=== PATIENT | male | born 1950 | race Caucasian/White ===

== ENCOUNTER 2022-03-11 07:37 | Inpatient (IN) | payer MEDICARE ==
[~2022-03-11] VITALS: Ht 193 cm; Wt 93.5 kg
[2022-03-11] MEDS ORDERED: ACETAMINOPHEN ES 500 MG TABLET PO ONE (08:00)
[2022-03-11] MEDS ORDERED: ONDANSETRON 4 MG/2 ML VIAL IV ONE (08:00)
[2022-03-11] MEDS ORDERED: MORPHINE SULFATE 2 MG/1 ML DISP.SYRIN IV ONE (08:00)
[2022-03-11] MEDS ORDERED: IOHEXOL 350 100 ML INFUS..BTL ONE (08:02)
[2022-03-11] MEDS ORDERED: SWABABLE VALVE TRANSFER SET EA MC ONE (08:02)
[2022-03-11] MEDS ORDERED: IV NORMAL SALINE 250 ML IV ONE (08:02)
[2022-03-11] MEDS ORDERED: BISMUTH PO (08:09)
[2022-03-11] MEDS ORDERED: ANTACID PO (08:09)
[2022-03-11] MEDS ORDERED: ACET-73 PO (08:09)
[2022-03-11] MEDS ORDERED: MEXI150C17 PO (08:09)
[2022-03-11] MEDS ORDERED: SODI650T PO (08:09)
[2022-03-11] MEDS ORDERED: BUSP5TAB3 PO (08:09)
[2022-03-11] MEDS ORDERED: DULO60CA45 PO (08:09)
[2022-03-11] MEDS ORDERED: ATOR80TA PO (08:09)
[2022-03-11] MEDS ORDERED: TIOT18CA3 INH (08:09)
[2022-03-11] MEDS ORDERED: AMIO200T5 PO (08:09)
[2022-03-11] MEDS ORDERED: TAMS-3 PO (08:09)
[2022-03-11] MEDS ORDERED: BUPR-319 PO (08:09)
[2022-03-11] MEDS ORDERED: LEVO25TA9 PO (08:09)
[2022-03-11] MEDS ORDERED: ASPI81TA31 PO (08:09)
[2022-03-11 08:11] LABS: HEMATOCRIT 38.6 % (36.7-47.1); MEAN CORPUSCULAR HEMOGLOBIN 27.8 uug (23.8-33.4); MEAN CORPUSCULAR VOLUME 82.6 fL (73.0-96.2); PLATELET COUNT (AUTO) 241 K/uL (152-348)
[2022-03-11 08:24] LABS: CREATININE 1.2 mg/dL (0.6-1.3); POTASSIUM 4.6 mmol/L (3.5-5.1)
[2022-03-11] MEDS ORDERED: ONDANSETRON 4 MG/2 ML VIAL ONE ×2 (08:24→19:41)
[2022-03-11] MEDS ORDERED: ACETAMINOPHEN ES 500 MG TABLET ONE (08:24)
[2022-03-11] MEDS ORDERED: MORPHINE SULFATE 4 MG/1 ML DISP.SYRIN ONE ×2 (08:24→11:24)
[2022-03-11 10:14] LABS: CARBON DIOXIDE 22 mmol/L (21-32); CHLORIDE 105 mmol/L (98-107); GLUCOSE 120 mg/dL (74-106); UREA NITROGEN, BLOOD 25 mg/dL (7-18)
[2022-03-11] MEDS ORDERED: ASPIRIN 81 MG TAB.CHEW PO ONE (10:45)
[2022-03-11] MEDS ORDERED: MORPHINE SULFATE 4 MG/1 ML DISP.SYRIN IV ONE (11:15)
[2022-03-11] MEDS ORDERED: ASPIRIN 81 MG TAB.CHEW ONE (11:24)
[2022-03-11] MEDS: DULOXETINE 60 MG CAPSULE.DR PO SCH ×2 (14:00→22:44)
[2022-03-11] MEDS ORDERED: busPIRone 5 MG TABLET ONE (14:51)
[2022-03-11] MEDS: busPIRone 5 MG TABLET PO SCH ×2 (14:56→22:44)
[2022-03-11] MEDS ORDERED: HYDROMORPHONE 1 MG/1 ML DISP.SYRIN ONE (19:41)
[2022-03-11] MEDS ORDERED: HYDROMORPHONE 1 MG/1 ML DISP.SYRIN IV PRN (19:45)
[2022-03-11] MEDS ORDERED: ONDANSETRON 4 MG/2 ML VIAL IV PRN ×2 (19:45→22:30)
[2022-03-11] MEDS ORDERED: NALOXONE HCL 0.4 MG/ML AMPUL ONE (20:12)
[2022-03-11] MEDS ORDERED: NALOXONE HCL 0.4 MG/ML AMPUL IV ONE (20:15)
[2022-03-11 21:30] VITALS: BP 140/108
[2022-03-11] MEDS ORDERED: ENOXAPARIN SODIUM 40 MG/0.4 ML DISP.SYRIN SQ SCH (22:30)
[2022-03-11] MEDS ORDERED: MAGNESIUM HYDROXIDE 30 ML LIQUID UDC PO PRN (22:30)
[2022-03-11] MEDS ORDERED: ACETAMINOPHEN 325 MG TABLET PO PRN (22:30)
[2022-03-11] MEDS ORDERED: REMEDY ESSENTIAL ZINC PASTE 113 GM TP PRN (22:30)
[2022-03-11] MEDS ORDERED: ZOLPIDEM 5 MG TABLET PO PRN (22:30)
[2022-03-11] MEDS: HYDROCODONE/APAP 10-325 MG TABLET PO PRN (22:44)
[2022-03-11] MEDS: ATORVASTATIN 40 MG TABLET PO SCH (22:44)
[2022-03-11] MEDS: MORPHINE SULFATE 2 MG/1 ML DISP.SYRIN IV PRN (23:43)
[2022-03-12] VITALS: BP 165/87
[2022-03-12 04:00] VITALS: BP 133/85
[2022-03-12] MEDS: busPIRone 5 MG TABLET PO SCH ×3 (05:23→21:09)
[2022-03-12] MEDS: HYDROCODONE/APAP 10-325 MG TABLET PO PRN ×3 (05:23→21:53)
[2022-03-12] MEDS: LEVOTHYROXINE SODIUM 25 MCG TABLET PO SCH (06:16)
[2022-03-12 06:47] LABS: HEMATOCRIT 38.5 % (36.7-47.1); MEAN CORPUSCULAR HEMOGLOBIN 27.9 uug (23.8-33.4); MEAN CORPUSCULAR VOLUME 82.4 fL (73.0-96.2); PLATELET COUNT (AUTO) 212 K/uL (152-348)
[2022-03-12 07:11] LABS: BILIRUBIN,TOTAL 0.5 mg/dL (0.2-1.0); MAGNESIUM 1.9 mg/dL (1.8-2.4); PHOSPHOROUS 3.9 mg/dL (2.5-4.9); POTASSIUM 4.5 mmol/L (3.5-5.1); TOTAL PROTEIN, SERUM 7.4 g/dL (6.4-8.2)
[2022-03-12] MEDS ORDERED: ENOXAPARIN SODIUM 100 MG/ML DISP.SYRIN SQ SCH (09:00)
[2022-03-12] MEDS: AMIODARONE HCL 200 MG TABLET PO SCH (10:08)
[2022-03-12] MEDS: ASPIRIN 81 MG TAB.CHEW PO SCH (10:08)
[2022-03-12] MEDS: DULOXETINE 60 MG CAPSULE.DR PO SCH ×2 (10:09→20:21)
[2022-03-12] MEDS: ENOXAPARIN SODIUM 100 MG/ML DISP.SYRIN SQ SCH ×2 (10:13→20:26)
[2022-03-12] MEDS ORDERED: IV NORMAL SALINE 250 ML IV ONE (11:01)
[2022-03-12] MEDS ORDERED: IOHEXOL 350 100 ML INFUS..BTL ONE (11:01)
[2022-03-12] MEDS ORDERED: SWABABLE VALVE TRANSFER SET EA MC ONE (11:01)
[2022-03-12 11:36] VITALS: BP 135/83
[2022-03-12] MEDS: MORPHINE SULFATE 2 MG/1 ML DISP.SYRIN IV PRN ×2 (15:01→20:21)
[2022-03-12 15:49] VITALS: BP 140/72
[2022-03-12] MEDS: ATORVASTATIN 40 MG TABLET PO SCH (20:21)
[2022-03-12 20:53] VITALS: BP 103/73
[2022-03-12] MEDS ORDERED: ENOXAPARIN SODIUM 40 MG/0.4 ML DISP.SYRIN SQ SCH (21:00)
[2022-03-13 00:06] VITALS: BP 130/71
[2022-03-13] MEDS: MORPHINE SULFATE 2 MG/1 ML DISP.SYRIN IV PRN ×4 (00:42→09:35)
[2022-03-13] MEDS: HYDROCODONE/APAP 10-325 MG TABLET PO PRN ×2 (03:32→23:13)
[2022-03-13 04:59] VITALS: BP 115/78
[2022-03-13] MEDS: busPIRone 5 MG TABLET PO SCH ×3 (05:24→21:08)
[2022-03-13] MEDS: LEVOTHYROXINE SODIUM 25 MCG TABLET PO SCH (06:24)
[2022-03-13 07:27] LABS: HEMATOCRIT 38.5 % (36.7-47.1); MEAN CORPUSCULAR HEMOGLOBIN 27.6 uug (23.8-33.4); MEAN CORPUSCULAR VOLUME 82.7 fL (73.0-96.2); PLATELET COUNT (AUTO) 198 K/uL (152-348)
[2022-03-13 07:33] LABS: BILIRUBIN,TOTAL 0.7 mg/dL (0.2-1.0); CREATININE 0.9 mg/dL (0.6-1.3); POTASSIUM 4.2 mmol/L (3.5-5.1); TOTAL PROTEIN, SERUM 7.4 g/dL (6.4-8.2)
[2022-03-13] MEDS: ASPIRIN 81 MG TAB.CHEW PO SCH (08:37)
[2022-03-13] MEDS: DULOXETINE 60 MG CAPSULE.DR PO SCH ×2 (08:37→21:06)
[2022-03-13] MEDS: AMIODARONE HCL 200 MG TABLET PO SCH (08:38)
[2022-03-13] MEDS: METOPROLOL SUCCINATE XL 25 MG TAB.SR.24H PO SCH (08:38)
[2022-03-13] MEDS: ENOXAPARIN SODIUM 100 MG/ML DISP.SYRIN SQ SCH ×2 (09:54→21:17)
[2022-03-13 11:29] VITALS: BP 98/65
[2022-03-13] MEDS: MORPHINE SULFATE 4 MG/1 ML DISP.SYRIN IV PRN ×2 (14:22→21:06)
[2022-03-13 15:06] VITALS: BP 100/62
[2022-03-13 15:30] VITALS: BP 100/62
[2022-03-13] MEDS ORDERED: AZITHROMYCIN 250 MG TABLET PO ONE (16:00)
[2022-03-13 20:00] VITALS: BP 137/62
[2022-03-13] MEDS: ATORVASTATIN 40 MG TABLET PO SCH (21:06)
[2022-03-14 00:09] VITALS: BP 101/63
[2022-03-14] MEDS: HYDROCODONE/APAP 10-325 MG TABLET PO PRN ×2 (01:21→06:51)
[2022-03-14] MEDS: MORPHINE SULFATE 4 MG/1 ML DISP.SYRIN IV PRN ×2 (02:39→13:55)
[2022-03-14 04:00] VITALS: BP 129/67
[2022-03-14] MEDS: busPIRone 5 MG TABLET PO SCH ×3 (06:03→22:02)
[2022-03-14] MEDS: LEVOTHYROXINE SODIUM 25 MCG TABLET PO SCH (06:03)
[2022-03-14] MEDS: METOPROLOL SUCCINATE XL 25 MG TAB.SR.24H PO SCH (08:20)
[2022-03-14] MEDS: ASPIRIN 81 MG TAB.CHEW PO SCH (08:20)
[2022-03-14] MEDS: DULOXETINE 60 MG CAPSULE.DR PO SCH ×2 (08:20→20:47)
[2022-03-14] MEDS: AMIODARONE HCL 200 MG TABLET PO SCH (08:21)
[2022-03-14] MEDS ORDERED: ENOXAPARIN SODIUM 100 MG/ML DISP.SYRIN SQ SCH (09:00)
[2022-03-14 11:02] VITALS: BP 100/58
[2022-03-14 14:59] VITALS: BP 110/73
[2022-03-14] MEDS ORDERED: OXYCODONE HCL 5 MG TABLET PO PRN (15:45)
[2022-03-14] MEDS: MORPHINE SULFATE SR 15 MG TABLET.SA PO SCH ×2 (15:54→22:02)
[2022-03-14] MEDS: AZITHROMYCIN 250 MG TABLET PO SCH (15:54)
[2022-03-14] MEDS: GABAPENTIN 300 MG CAPSULE PO SCH (16:32)
[2022-03-14 20:23] VITALS: BP 102/56
[2022-03-14] MEDS: ATORVASTATIN 40 MG TABLET PO SCH (20:53)
[2022-03-14] MEDS ORDERED: ENOXAPARIN SODIUM 40 MG/0.4 ML DISP.SYRIN SQ SCH (21:00)
[2022-03-15 04:45] VITALS: BP 104/65
[2022-03-15] MEDS: busPIRone 5 MG TABLET PO SCH ×2 (06:10→14:13)
[2022-03-15] MEDS: LEVOTHYROXINE SODIUM 25 MCG TABLET PO SCH (06:10)
[2022-03-15 07:09] LABS: HEMATOCRIT 35.2 % (36.7-47.1); MEAN CORPUSCULAR VOLUME 82.3 fL (73.0-96.2); PLATELET COUNT (AUTO) 245 K/uL (152-348)
[2022-03-15 07:24] LABS: CREATININE 1.1 mg/dL (0.6-1.3); POTASSIUM 4.1 mmol/L (3.5-5.1)
[2022-03-15] MEDS: ASPIRIN 81 MG TAB.CHEW PO SCH (08:15)
[2022-03-15] MEDS: AMIODARONE HCL 200 MG TABLET PO SCH (08:15)
[2022-03-15] MEDS: METOPROLOL SUCCINATE XL 25 MG TAB.SR.24H PO SCH (08:15)
[2022-03-15] MEDS: GABAPENTIN 300 MG CAPSULE PO SCH ×3 (08:15→16:07)
[2022-03-15] MEDS: MORPHINE SULFATE SR 15 MG TABLET.SA PO SCH (08:17)
[2022-03-15] MEDS: DULOXETINE 60 MG CAPSULE.DR PO SCH (08:17)
[2022-03-15 11:14] VITALS: BP 102/72
[2022-03-15] MEDS ORDERED: OXYCODONE HCL 5 MG TABLET PO PRN (14:00)
[2022-03-15] MEDS ORDERED: METO-356 PO (14:02)
[2022-03-15] MEDS ORDERED: OXYC5TAB3 PO (14:02)
[2022-03-15] MEDS ORDERED: GABA300C PO (14:02)
[2022-03-15] MEDS ORDERED: MORP15TA60 PO (14:02)
[2022-03-15] MEDS: AZITHROMYCIN 250 MG TABLET PO SCH (16:07)
== END 2022-03-15 18:20 | disposition home or self-care (01) | DRG 281 ==
LOC: ER 07:37 → TRANSITION 16:25 → TELE3 20:47 → MEDSURG3 03-14 06:06
PROVIDERS: ADMIT Nurse Practitioner Acute Care; ATTEND Nurse Practitioner Acute Care
DX: I21.4 Non-ST elevation (NSTEMI) myocardial infarction (principal); J21.9 Acute bronchiolitis, unspecified; I47.2 Ventricular tachycardia; C79.51 Secondary malignant neoplasm of bone; I42.8 Other cardiomyopathies; E03.9 Hypothyroidism, unspecified; E78.5 Hyperlipidemia, unspecified; I10 Essential (primary) hypertension; I25.10 Atherosclerotic heart disease of native coronary artery without angina pectoris; N40.0 Benign prostatic hyperplasia without lower urinary tract symptoms; Z79.82 Long term (current) use of aspirin; Z87.891 Personal history of nicotine dependence; K21.9 Gastro-esophageal reflux disease without esophagitis; F32.A Depression, unspecified; I77.810 Thoracic aortic ectasia; Z85.46 Personal history of malignant neoplasm of prostate; M54.89 Other dorsalgia; R07.89 Other chest pain; C61 Malignant neoplasm of prostate; Z20.822 Contact with and (suspected) exposure to COVID-19; G89.3 Neoplasm related pain (acute) (chronic); Z95.810 Presence of automatic (implantable) cardiac defibrillator
CPT/HCPCS: 36415; 71045; 71275; 83735; 84100; 84484; 85025; 93005; 93307; 97161; A4663; A9150; G0378; J1170; J1650; J2270; J2310; J2405; Q0144; Q9967